=== PATIENT | male | born 1965 | race American Indian/Alaskan Native ===

== ENCOUNTER 2017-11-25 19:49 | Emergency (ER) | payer MEDICAID, MEDICARE ==
[2017-11-25 21:29] LABS: Basophils % (Auto) 0.7 % (0.0-1.8); Eosinophils # (Auto) 0.1 K/mm3 (0.0-0.4); Eosinophils % (Auto) 1.3 % (0.0-4.3); Hematocrit 43.8 % (35.5-45.6); Hemoglobin 14.7 gm/dl (11.8-15.2); Lymphocytes # (Auto) 2.3 K/mm3 (1.2-5.4); Lymphocytes % (Auto) 40.1 % (13.4-35.0); Mean Corpuscular HGB Conc 34 % (32-34); Mean Corpuscular Hemoglobin 32 pg (28-32); Mean Corpuscular Volume 96 fl (84-94); Monocytes # (Auto) 0.6 K/mm3 (0.0-0.8); Monocytes % (Auto) 10.9 % (0.0-7.3); Platelet Count 259 K/mm3 (140-440); Red Blood Count 4.57 M/mm3 (3.65-5.03); Red Cell Distribution Width 13.4 % (13.2-15.2)
[2017-11-25 21:45] LABS: BUN/Creatinine Ratio 12; Blood Urea Nitrogen 12 mg/dL (9-20); Calcium 8.5 mg/dL (8.4-10.2); Hemolysis Index 10
[2017-11-25 23:48] LABS: Bilirubin,Urine NEG (Negative); Blood,Urine SM (Negative); Color,Urine Yellow (Yellow); Nitrite,Urine NEG (Negative); Protein,Urine <15 mg/dL mg/dL (Negative); Urobilinogen,Urine < 2.0 mg/dL (<2.0); WBC,Urine < 1.0 /HPF (0.0-6.0)
[2017-11-25 23:55] LABS: Amphetamine Screen,Urine PRESUMPTIVE NEGATIVE; Benzodiazepines Screen,Urine PRESUMPTIVE NEGATIVE; Methadone Screen,Urine PRESUMPTIVE NEGATIVE; Opiate Screen,Urine PRESUMPTIVE NEGATIVE
[2017-11-26 00:09] LABS: Cannabinoid Screen,Urine PRESUMPTIVE POSITIVE; Cocaine Screen,Urine PRESUMPTIVE POSITIVE
--- NOTE | 2017-11-26 03:53 | Emergency Department Report ---
ED Psych HPI - General Chief Complaint: Psych Stated Complaint: MH Time Seen by Provider: 11/26/17 03:18 Source: patient Mode of arrival: Ambulatory Limitations: No Limitations - History of Present Illness Initial Comments: 52-year-old male with a past medical history of depression, elevated cholesterol , and substance abuse presents to hospital complaints of depression and substance abuse. Patient has been depressed 1 week. He admits to abusing wheezing and crack. He has been off of medications for depression for several years. Patient denies suicidal ideation. Patient states he has quick tempered and irritable but denies homicidal ideation. He wants to be proactive and be treated before symptoms worsen. No complaints of auditory hallucinations, visual hallucinations, or physical pain. - Related Data Home Medications Medication Instructions Recorded Confirmed Last Taken Bupropion HCl [Wellbutrin XL] 300 mg PO QAM 05/08/15 02/14/16 1 Week Ago ~02/07/16 Simvastatin [Zocor] 40 mg PO QHS 05/08/15 02/14/16 1 Week Ago ~02/07/[address] [DepaKOTE DR] 500 mg PO BID 05/21/15 02/14/16 1 Week Ago ~02/07/16 Quetiapine Fumarate [QUEtiapine 300 mg PO QHS 05/21/15 02/14/16 1 Week Ago Fumarate] ~02/07/16 traZODone [Desyrel] 100 mg PO QHS PRN 05/21/15 02/14/16 1 Week Ago ~02/07/16 Allergies Allergy/AdvReac Type Severity Reaction Status Date / Time No Known Allergies Allergy Verified 02/14/16 13:38 ED Review of Systems ROS: Stated complaint: MH Other details as noted in HPI Comment: All other systems reviewed and negative Other: Constitutional: No fevers chills Eyes: No eye pain visual changes ENT: No ear pain or throat pain Neck: Denies pain Respiratory: Denies cough wheezing shortness of breath Cardiovascular: Denies chest pain, palpitations, syncope GI: Denies abdominal pain, nausea, vomiting, diarrhea : Denies dysuria Musculoskeletal: Denies back cory Skin: Denies rash, lesions, erythema Neurologic: Denies headache, numbness, weakness Psychiatric: Denies suicidal ideation, hallucinations ED Past Medical Hx - Past Medical History Previous Medical History?: Yes Hx Psychiatric Treatment: Yes (depression) Additional medical history: HIGH CHOLESTEROL,SKIN DISORDER - Surgical History Past Surgical History?: Yes Hx Appendectomy: Yes - Social History Smoking Status: Current Every Day Smoker Substance Use Type: Marijuana - Medications Home Medications: Home Medications Medication Instructions Recorded Confirmed Last Taken Type Bupropion HCl [Wellbutrin XL] 300 mg PO QAM 05/08/15 02/14/16 1 Week Ago History ~02/07/16 Simvastatin [Zocor] 40 mg PO QHS 05/08/15 02/14/16 1 Week Ago History ~02/07/[address] [DepaKOTE DR] 500 mg PO BID 05/21/15 02/14/16 1 Week Ago History ~02/07/16 Quetiapine Fumarate [QUEtiapine 300 mg PO QHS 05/21/15 02/14/16 1 Week Ago History Fumarate] ~02/07/16 traZODone [Desyrel] 100 mg PO QHS PRN 05/21/15 02/14/16 1 Week Ago History ~02/07/16 ED Physical Exam - General Limitations: No Limitations - Other Other exam information: General: No limitations, patient is alert in no acute distress Head exam: Atraumatic, normocephalic Eyes exam: Normal appearance ENT: Moist mucous membrane, normal oropharynx Neck exam: Normal inspection, full range of motion Respiratory exam: Clear to auscultation bilateral, no wheezes, rales, crackles Cardiovascular: Normal rate and rhythm, normal heart sounds Abdomen: Soft, nondistended, and nontender, with normal bowel sounds, no rebound, or guarding Extremity: Full range of motion normal inspection no deformity Back: Normal Inspection, full range of motion, no tenderness Neurologic: Alert, oriented x3, cranial nerves intact, no motor or sensory deficit Psychiatric: normal affect, normal mood Skin: Warm, dry, intact ED Course Vital Signs 11/25/17 11/26/17 11/26/17 20:44 01:41 01:44 Temperature 98.6 F 97.9 F Pulse Rate 62 63 Respiratory 16 18 18 Rate Blood Pressure 119/70 Blood Pressure 128/81 [Left] O2 Sat by Pulse 99 99 99 Oximetry - Consultations Consultation #1: 11/26/17 consult ED Medical Decision Making - Lab Data Result diagrams: 11/25/17 21:00 11/25/17 21:00 Lab Results 11/25/17 11/25/17 11/25/17 Range/Units 21:00 21:00 21:00 WBC 5.9 (4.5-11.0) K/mm3 RBC 4.57 (3.65-5.03) M/mm3 Hgb 14.7 (11.8-15.2) gm/dl Hct 43.8 (35.5-45.6) % MCV 96 H (84-94) fl MCH 32 (28-32) pg MCHC 34 (32-34) % RDW 13.4 (13.2-15.2) % Plt Count 259 (140-440) K/mm3 Lymph % (Auto) 40.1 H (13.4-35.0) % [place] % (Auto) 10.9 H (0.0-7.3) % Eos % (Auto) 1.3 (0.0-4.3) % Baso % (Auto) 0.7 (0.0-1.8) % Lymph # 2.3 (1.2-5.4) K/mm3 [place] # 0.6 (0.0-0.8) K/mm3 Eos # 0.1 (0.0-0.4) K/mm3 Baso # 0.0 (0.0-0.1) K/mm3 Seg Neutrophils % 47.0 (40.0-70.0) % Seg Neutrophils # 2.8 (1.8-7.7) K/mm3 Sodium 141 (137-145) mmol/L Potassium 4.6 (3.6-5.0) mmol/L Chloride 106.4 (98-107) mmol/L Carbon Dioxide 24 (22-30) mmol/L Anion Gap 15 mmol/L BUN 12 (9-20) mg/dL Creatinine 1.0 (0.8-1.5) mg/dL Estimated GFR > 60 ml/min BUN/Creatinine Ratio 12 % Glucose 84 (75-100) mg/dL Calcium 8.5 (8.4-10.2) mg/dL Total Creatine Kinase (55-170) units/L Urine Color (Yellow) Urine Turbidity (Clear) Urine pH (5.0-7.0) Ur Specific [place] (1.003-1.030) Urine Protein (Negative) mg/dL Urine Glucose (UA) (Negative) mg/dL Urine Ketones (Negative) mg/dL Urine Blood (Negative) Urine Nitrite (Negative) Urine Bilirubin (Negative) Urine Urobilinogen (<2.0) mg/dL Ur Leukocyte Esterase (Negative) Urine WBC (Auto) (0.0-6.0) /HPF Urine RBC (Auto) (0.0-6.0) /HPF Urine Opiates Screen Urine Methadone Screen Ur Barbiturates Screen Ur Phencyclidine Scrn Ur Amphetamines Screen U Benzodiazepines Scrn Urine Cocaine Screen U Marijuana (THC) Screen Drugs of Abuse Note Plasma/Serum Alcohol < 0.01 (0-0.07) gm% 11/25/17 11/25/17 11/26/17 Range/Units 23:26 23:26 03:30 WBC (4.5-11.0) K/mm3 RBC (3.65-5.03) M/mm3 Hgb (11.8-15.2) gm/dl Hct (35.5-45.6) % MCV (84-94) fl MCH (28-32) pg MCHC (32-34) % RDW (13.2-15.2) % Plt Count (140-440) K/mm3 Lymph % (Auto) (13.4-35.0) % [place] % (Auto) (0.0-7.3) % Eos % (Auto) (0.0-4.3) % Baso % (Auto) (0.0-1.8) % Lymph # (1.2-5.4) K/mm3 [place] # (0.0-0.8) K/mm3 Eos # (0.0-0.4) K/mm3 Baso # (0.0-0.1) K/mm3 Seg Neutrophils % (40.0-70.0) % Seg Neutrophils # (1.8-7.7) K/mm3 Sodium (137-145) mmol/L Potassium (3.6-5.0) mmol/L Chloride (98-107) mmol/L Carbon Dioxide (22-30) mmol/L Anion Gap mmol/L BUN (9-20) mg/dL Creatinine (0.8-1.5) mg/dL Estimated GFR ml/min BUN/Creatinine Ratio % Glucose (75-100) mg/dL Calcium (8.4-10.2) mg/dL Total Creatine Kinase 235 H (55-170) units/L Urine Color Yellow (Yellow) Urine Turbidity Clear (Clear) Urine pH 6.0 (5.0-7.0) Ur Specific [place] 1.015 (1.003-1.030) Urine Protein <15 mg/dl (Negative) mg/dL Urine Glucose (UA) Neg (Negative) mg/dL Urine Ketones Neg (Negative) mg/dL Urine Blood Sm (Negative) Urine Nitrite Neg (Negative) Urine Bilirubin Neg (Negative) Urine Urobilinogen < 2.0 (<2.0) mg/dL Ur Leukocyte Esterase Neg (Negative) Urine WBC (Auto) < 1.0 (0.0-6.0) /HPF Urine RBC (Auto) 4.0 (0.0-6.0) /HPF Urine Opiates Screen Presumptive negative Urine Methadone Screen Presumptive negative Ur Barbiturates Screen Presumptive negative Ur Phencyclidine Scrn Presumptive negative Ur Amphetamines Screen Presumptive negative U Benzodiazepines Scrn Presumptive negative Urine Cocaine Screen Presumptive positive U Marijuana (THC) Screen Presumptive positive Drugs of Abuse Note Disclamer Plasma/Serum Alcohol (0-0.07) gm% - Medical Decision Making Depression Patient admitted to mental [facility] that he has intermittent suicidal ideation and tried to overdose on crack 1013 and transfer forms Polysubstance abuse He has positive cocaine and marijuana No Signs of rhabdomyolysis No Complaints of chest Patient medically clear for psychiatric transfer Labs,UA unremarkable - Differential Diagnosis suicidal, depression, substance abuse Critical Care Time: No Critical care attestation.: If time is entered above; I have spent that time in minutes in the direct care of this critically ill patient, excluding procedure time. ED Disposition Clinical Impression: Suicidal ideations, Depression, Cocaine abuse, Medical clearance for psychiatric admission Disposition: DC/TX-65 PSY HOSP/PSY UNIT Is pt being admited?: No Condition: Stable Time of Disposition: 04:53 (awaiting acceptance)
--- NOTE | 2017-11-26 11:33 | Consultation ---
History of Present Illness - Reason for Consult Consult date: 11/26/17 Reason for consult: Mental Health Evaluation Requesting physician: MISHA GODFREY - Chief Complaint Chief complaint: "I am stressed out" - History of Present Psychiatric Illness 52 y.o. AA male presenting to [facility] for depression and substance abuse. Today the patient is calm and cooperative during the assessment. He stated that he is experiencing a lot of life stressors at this time. He also stated that his mother has cancer. He stated that he cannot handle all the stress at this time, so now he is suicidal. He stated not having a "solid plan" on how he would commit suicide. He stated a previous suicide attempt by overdosing on pills. He stated that he want to stop using recreational drugs, but he self medicate to lower his depression. He rate his depression 8/10, with 10 being the worse. He stated using recreational drugs for many years. He denies HI's and AVH's. He admitted to erratic sleep, but denies a poor appetite. He denies excessive alcohol consumption (etoh). Medications and Allergies Allergies Allergy/AdvReac Type Severity Reaction Status Date / Time No Known Allergies Allergy Verified 02/14/16 13:38 Home Medications Medication Instructions Recorded Confirmed Last Taken Type Bupropion HCl [Wellbutrin XL] 300 mg PO QAM 05/08/15 02/14/16 1 Week Ago History ~02/07/16 Simvastatin [Zocor] 40 mg PO QHS 05/08/15 02/14/16 1 Week Ago History ~02/07/[address] [DepaKOTE DR] 500 mg PO BID 05/21/15 02/14/16 1 Week Ago History ~02/07/16 Quetiapine Fumarate [QUEtiapine 300 mg PO QHS 05/21/15 02/14/16 1 Week Ago History Fumarate] ~02/07/16 traZODone [Desyrel] 100 mg PO QHS PRN 05/21/15 02/14/16 1 Week Ago History ~02/07/16 Past psychiatric history - Past Medical History Past Medical History: hyperlipidemia Past Surgical History: No surgical history - past Psychiatric treatment and history Psych: Depression psychiatric treatment history: Multiple inpatient psy settings. Denies a fam psy hx. - Social History Social history: lives with family Mental Status Exam - Vital signs Last Vital Signs Temp 97.9 F 11/26/17 01:41 Pulse 63 11/26/17 01:41 Resp 18 11/26/17 01:44 BP 128/81 11/26/17 01:41 Pulse Ox 99 11/26/17 01:44 - Exam Narrative exam: MSE: Appearance: calm, cooperative Behavior: good eye contact Speech: regular rate and tone Mood: "depressed" Affect: congruent to mood Thought Process: circumstantial Thought Content: denies HI's and AVH's Motor Activity: ambulatory Cognition: A/O x 3 Insight: fair Judgment: variable Results Result Diagrams: 11/25/17 21:00 11/25/17 21:00 Abnormal lab results 11/25/17 11/26/17 Range/Units 21:00 03:30 MCV 96 H (84-94) fl Lymph % (Auto) 40.1 H (13.4-35.0) % [place] % (Auto) 10.9 H (0.0-7.3) % Total Creatine Kinase 235 H (55-170) units/L All other labs normal. Assessment and Plan Assessment and plan: Impression: MDD, Severe Type. Substance Use DO (cocaine/marijuana). Today the patient is calm and cooperative during the assessment. Patient endorses SI's. DDx: R/O Bipolar, R/O Substance Induced Mood DO Recommendation/Plan: Continue 1013 with placement to [place] today.
[2017-11-26 13:13] VITALS: BP 155/51
== END 2017-11-26 13:15 ==
LOC: ED 19:49 → EEVIPCON 19:49 → ED 11-26 13:15
DX: F32.9 Major depressive disorder, single episode, unspecified (principal); F14.10 Cocaine abuse, uncomplicated; F12.10 Cannabis abuse, uncomplicated; E78.00 Pure hypercholesterolemia, unspecified; F17.200 Nicotine dependence, unspecified, uncomplicated; Z90.49 Acquired absence of other specified parts of digestive tract; Z79.899 Other long term (current) drug therapy
CPT/HCPCS: 36415; 80048; 80307; 81001; 82550; 85025; 99285; G0480; 80320

== ENCOUNTER 2018-05-31 12:09 | Emergency (ER) | payer MEDICARE ==
[2018-05-31 13:47] LABS: Basophils # (Auto) 0.1 K/mm3 (0.0-0.1); Basophils % (Auto) 1.4 % (0.0-1.8); Eosinophils # (Auto) 0.1 K/mm3 (0.0-0.4); Eosinophils % (Auto) 1.4 % (0.0-4.3); Hematocrit 46.8 % (35.5-45.6); Hemoglobin 15.6 gm/dl (11.8-15.2); Lymphocytes # (Auto) 2.1 K/mm3 (1.2-5.4); Lymphocytes % (Auto) 35.9 % (13.4-35.0); Mean Corpuscular HGB Conc 33 % (32-34); Mean Corpuscular Hemoglobin 32 pg (28-32); Mean Corpuscular Volume 94 fl (84-94); Monocytes # (Auto) 0.5 K/mm3 (0.0-0.8); Monocytes % (Auto) 8.9 % (0.0-7.3); Platelet Count 268 K/mm3 (140-440); Red Blood Count 4.96 M/mm3 (3.65-5.03); Red Cell Distribution Width 13.5 % (13.2-15.2)
[2018-05-31 13:52] LABS: BUN/Creatinine Ratio 12; Blood Urea Nitrogen 11 mg/dL (9-20); Calcium 9.3 mg/dL (8.4-10.2); Hemolysis Index 29
[2018-05-31 14:01] LABS: Bilirubin,Urine NEG (Negative); Blood,Urine MOD (Negative); Color,Urine Yellow (Yellow); Protein,Urine <15 mg/dL mg/dL (Negative); Urobilinogen,Urine < 2.0 mg/dL (<2.0)
[2018-05-31 14:13] LABS: Amphetamine Screen,Urine PRESUMPTIVE NEGATIVE; Benzodiazepines Screen,Urine PRESUMPTIVE NEGATIVE; Cannabinoid Screen,Urine PRESUMPTIVE NEGATIVE; Methadone Screen,Urine PRESUMPTIVE NEGATIVE; Opiate Screen,Urine PRESUMPTIVE NEGATIVE
[2018-05-31 14:27] LABS: Cocaine Screen,Urine PRESUMPTIVE POSITIVE
--- NOTE | 2018-05-31 14:41 | Emergency Department Report ---
<FABIÁN TOMAS - Last Filed: 05/31/18 14:36> ED Medical Clearance HPI - General Chief complaint: Medical Clearance Stated complaint: NEED MEDICAL CLEARANCE Time Seen by Provider: 05/31/18 13:26 Source: patient Mode of arrival: Ambulatory - History of Present Illness Initial comments: This is a 53-year-old male nontoxic, well nourished in appearance, no acute signs of distress presents to the ED with c/o of for medical clearance to go to [facility]. Patient stated that he has history of alcohol and drug abuse and last did cocaine and alcohol last night. Patient denies any suicidal thoughts or homicidal medication. Patient denies any fever, chills, tremors, nausea, vomiting, headache, stiff neck, back pain, numbness, tingling, chest pain or shortness of breath. Patient denies any allergies. Past medical history includes psych. Patient stated that he contacted [facility] and they have space available for patient but needs to be medically cleared first. MD Complaint: medical clearance request Reason for Medical Clearance: intoxication Alledged Intoxication: No Traumatic Symptoms: denies traumatic injury Associated Symptoms: denies other symptoms. denies: chest pain, shortness of breath, palpitations, diaphoresis, confusion, cough, fever/chills, headaches, anorexia, malaise, nausea/vomiting, rash, seizure, syncope, weakness Treatments Prior to Arrival: none Home medications: Home Medications Medication Instructions Recorded Confirmed Last Taken Bupropion HCl [Wellbutrin XL] 300 mg PO QAM 05/08/15 02/14/16 1 Week Ago ~02/07/16 Simvastatin [Zocor] 40 mg PO QHS 05/08/15 02/14/16 1 Week Ago ~02/07/16 Divalproex [Jasmin DAVIS] 500 mg PO BID 05/21/15 02/14/16 1 Week Ago ~02/07/16 Quetiapine Fumarate [QUEtiapine 300 mg PO QHS 05/21/15 02/14/16 1 Week Ago Fumarate] ~02/07/16 traZODone [Desyrel] 100 mg PO QHS PRN 05/21/15 02/14/16 1 Week Ago ~02/07/16 Allergies/Adverse reactions: Allergies Allergy/AdvReac Type Severity Reaction Status Date / Time No Known Allergies Allergy Verified 02/14/16 13:38 ED Review of Systems ROS: Stated complaint: NEED MEDICAL CLEARANCE Other details as noted in HPI Constitutional: denies: chills, fever Eyes: denies: eye pain, eye discharge, vision change ENT: denies: ear pain, throat pain Respiratory: denies: cough, shortness of breath, wheezing Cardiovascular: denies: chest pain, palpitations Endocrine: no symptoms reported Gastrointestinal: denies: abdominal pain, nausea, diarrhea Genitourinary: denies: urgency, dysuria Musculoskeletal: denies: back pain, joint swelling, arthralgia Skin: denies: rash, lesions Neurological: denies: headache, weakness, paresthesias Psychiatric: denies: anxiety, depression Hematological/Lymphatic: denies: easy bleeding, easy bruising ED Past Medical Hx - Past Medical History Previous Medical History?: Yes Hx Psychiatric Treatment: Yes (depression) Additional medical history: HIGH CHOLESTEROL,SKIN DISORDER, genital herpes. - Surgical History Hx Appendectomy: Yes - Social History Smoking Status: Current Every Day Smoker Substance Use Type: Alcohol, Other - Medications Home Medications: Home Medications Medication Instructions Recorded Confirmed Last Taken Type Bupropion HCl [Wellbutrin XL] 300 mg PO QAM 05/08/15 02/14/16 1 Week Ago History ~02/07/16 Simvastatin [Zocor] 40 mg PO QHS 05/08/15 02/14/16 1 Week Ago History ~02/07/[address] [DepaKOTE DR] 500 mg PO BID 05/21/15 02/14/16 1 Week Ago History ~02/07/16 Quetiapine Fumarate [QUEtiapine 300 mg PO QHS 05/21/15 02/14/16 1 Week Ago History Fumarate] ~02/07/16 traZODone [Desyrel] 100 mg PO QHS PRN 05/21/15 02/14/16 1 Week Ago History ~02/07/16 ED Physical Exam - General Limitations: No Limitations General appearance: alert, in no apparent distress - Head Head exam: Present: atraumatic, normocephalic - Eye Eye exam: Present: normal appearance - ENT ENT exam: Present: mucous membranes moist - Neck Neck exam: Present: normal inspection - Respiratory Respiratory exam: Present: normal lung sounds bilaterally. Absent: respiratory distress - Cardiovascular Cardiovascular Exam: Present: regular rate, normal rhythm. Absent: systolic murmur, diastolic murmur, rubs, gallop - GI/Abdominal GI/Abdominal exam: Present: soft, normal bowel sounds - Rectal Rectal exam: Present: deferred - Extremities Exam Extremities exam: Present: normal inspection - Back Exam Back exam: Present: normal inspection - Neurological Exam Neurological exam: Present: alert, oriented X3 - Psychiatric Psychiatric exam: Present: normal affect, normal mood - Skin Skin exam: Present: warm, dry, intact, normal color. Absent: rash ED Course Vital Signs 05/31/18 05/31/18 12:25 14:53 Temperature 97.8 F 98.6 F Pulse Rate 56 L 67 Respiratory 16 18 Rate Blood Pressure 144/79 Blood Pressure 141/71 [Right] O2 Sat by Pulse 99 98 Oximetry - Reevaluation(s) Reevaluation #1: 05/31/18 14:38 Patient is speaking in full sentences with no signs of distress noted. ED Medical Decision Making - Lab Data Result diagrams: 05/31/18 13:18 05/31/18 13:18 - Medical Decision Making 53-year-old male that presents with a medical clearance. Patient stabilizes and by me. Labs obtained. Vital signs are stable. No signs or symptoms of withdrawal. No suicidal homicidal medication. Andria from psych consulted and called [facility] which they stated that they have a place for patient. Andria stated patient can transport self. Patient stated he is going straight to [facility] after discharge. At time of discharge, the patient does not seem toxic or ill in appearance. No acute signs of distress noted. Patient agrees to discharge treatment plan of care. No further questions noted by the patient. ED Disposition Clinical Impression: Medical clearance for psychiatric admission, Alcohol abuse, Cocaine abuse Disposition: DC/TX-65 PSY HOSP/PSY UNIT Is pt being admited?: No Does the pt Need Aspirin: No Condition: Stable Referrals: PRIMARY CARE, [Primary Care Provider] - 3-5 Days <MISHA GODFREY - Last Filed: 05/31/18 19:00> ED Medical Decision Making - Lab Data Result diagrams: 05/31/18 13:18 05/31/18 13:18
[2018-05-31 14:54] VITALS: BP 141/71
== END 2018-06-02 14:47 ==
LOC: ED 12:09
DX: F10.10 Alcohol abuse, uncomplicated (principal); F14.10 Cocaine abuse, uncomplicated; F32.9 Major depressive disorder, single episode, unspecified; E78.00 Pure hypercholesterolemia, unspecified; F17.200 Nicotine dependence, unspecified, uncomplicated; Z90.49 Acquired absence of other specified parts of digestive tract
CPT/HCPCS: 36415; 80048; 80307; 81001; 83735; 85025; 99284; G0480; 80320